=== PATIENT | female | born 1975 | race Caucasian/White ===

== ENCOUNTER 2023-02-19 11:38 | Emergency (ER) | payer MEDICAID ==
[~2023-02-19] VITALS: Ht 167.6 cm; Wt 99.7 kg
[~2023-02-19 11:38] MED LIST: FERR325T28 PO; FOLI1TAB27 PO; MELO-102 PO; METH2.5T55 PO; NAPR-996 PO; NIFE30TA8 PO; OMEP40CA21 PO; PRE5T PO
[2023-02-19 16:16] LABS: BASOPHILS # (AUTO) 0.1 X10'3 (0-0.2); BASOPHILS % (AUTO) 0.5 % (0-1); EOSINOPHILS # (AUTO) 0.2 X10'3 (0-0.9); HEMATOCRIT 39.5 % (35.0-45.0); HEMOGLOBIN 12.7 g/dl (12.0-16.0); LYMPHOCYTES # (AUTO) 1.7 X10'3 (1.1-4.8); LYMPHOCYTES % (AUTO) 14.1 % (21-51); MEAN CORPUSCULAR HEMOGLOBIN 28.1 PG (27.0-31.0); MEAN CORPUSCULAR HGB CONC 32.3 g/dL (33.0-36.5); MEAN CORPUSCULAR VOLUME 87.1 FL (78-98); MEAN PLATELET VOLUME 8.8 FL (7.4-10.4); MONOCYTES # (AUTO) 1.3 X10'3 (0-0.9); MONOCYTES % (AUTO) 11.1 % (2-12); NEUTROPHILS # (AUTO) 8.5 X10'3 (1.8-7.7); NEUTROPHILS % (AUTO) 72.3 % (42-75); PLATELET COUNT 253 X10'3 (140-440); RED BLOOD COUNT 4.53 X10'6 (4.20-5.60); RED CELL DISTRIBUTION WIDTH 16.4 % (11.5-14.5); WHITE BLOOD COUNT 11.7 X10'3 (4.5-11.0)
[2023-02-19 16:24] LABS: BILIRUBIN,URINE NEGATIVE (Neg); CLARITY,URINE CLEAR (Clear); COLOR,URINE YELLOW (Yellow); GLUCOSE, URINE NEGATIVE (Neg); KETONES,URINE NEGATIVE (Neg); LEUKOCYTE ESTERASE ,URINE NEGATIVE (Neg); NITRITES, URINE NEGATIVE (Neg); OCCULT BLOOD,URINE NEGATIVE (Neg); PROTEIN,URINE NEGATIVE (Neg); UROBILINOGEN,URINE 0.2 E.U/dL (0.2-1.0)
[2023-02-19 16:29] LABS: UA COLLECTION TYPE CLN CATCH MIDSTREAM
[2023-02-19 16:31] LABS: APTT 27 SECONDS (22-32); D-DIMER 0.44 MG/L FEU (0-0.50); INR 0.9 INR; PROTHROMBIN TIME 10.1 SECONDS (9.0-12.0)
[2023-02-19 16:35] LABS: ALANINE AMINOTRANSFERASE 12 U/L (12-78); ALBUMIN 3.6 G/DL (3.4-5.0); ALBUMIN/GLOBULIN RATIO 0.9 (1.1-1.5); ALKALINE PHOSPHATASE 82 IU/L (46-116); AMYLASE 52 U/L (25-115); ANION GAP 7 (8-16); ASPARTATE AMINO TRANSFERASE 16 U/L (10-37); BILIRUBIN,TOTAL 0.2 MG/DL (0.1-1.0); BLOOD UREA NITROGEN 12 MG/DL (7-18); BUN/CREATININE RATIO 17.1 (10.0-20.0); CALCIUM 9.2 MG/DL (8.5-10.1); CHLORIDE 104 MMOL/L (99-107); GLUCOSE 108 MG/DL (70-104); POTASSIUM 3.7 MMOL/L (3.5-5.1); SODIUM 139 MMOL/L (135-145); TOTAL CARBON DIOXIDE 27.6 MMOL/L (24-32); TOTAL PROTEIN 7.4 G/DL (6.4-8.2); eCRCL 91 ML/MIN; eGFR 89 ML/MIN
[2023-02-19] MEDS ORDERED: CefTRIAXone 1000mg IM Kit (w/lidocaine diluent) IM STA (17:34)
[2023-02-19] MEDS ORDERED: SULF1TAB49 PO (17:40)
[2023-02-19 17:58] VITALS: BP 126/71; PULSE 89; RESP 18; TEMP 98.3; O2SAT 96
== END 2023-02-19 18:03 | disposition home or self-care (01) ==
LOC: ER 11:38
DX: L53.8 Other specified erythematous conditions (principal); I80.8 Phlebitis and thrombophlebitis of other sites
CPT/HCPCS: 36415; 80053; 81003; 82150; 85025; 85379; 85610; 85730; 93971; 96372; 99285; J0696